=== PATIENT | male | born 1995 | race Caucasian/White ===

== ENCOUNTER 2016-07-27 17:15 | Emergency (ER) | payer OTHER ==
--- NOTE | 2016-07-27 18:54 | EDPHY ---
H & P Time Seen by Provider: 07/27/16 18:40 HPI/ROS: CHIEF COMPLAINT: Cough, chest congestion. HISTORY OF PRESENT ILLNESS: The patient is a 21-year-old otherwise healthy male who presents with productive cough and chest congestion for 4 days. The symptoms began with 1 or 2 days of sore throat that went away. He has had bronchitis twice in the past year and believes this feels the same. The cough is keeping him awake at night. He denies fever, vomiting, or other complaints. He has been treating his symptoms with Robitussin. REVIEW OF SYSTEMS: A complete 10-point review of systems was performed and is negative except for those items mentioned in the HPI. Past Medical/Surgical History: Denies. Social History: Nonsmoker, student. Smoking Status: Never smoked Physical Exam: General Appearance: Alert, no distress Eyes: Pupils equal and round, no conjunctival pallor or injection ENT, Mouth: Mild pharyngeal erythema. Mucous membranes moist Neck: Normal inspection Respiratory: Lungs are clear to auscultation Cardiovascular: Regular rate and rhythm Gastrointestinal: Abdomen is soft and non- tender Neurological: A&O, nonfocal, normal gait Skin: Warm and dry, no rash Extremities: Nontender, no pedal edema Psychiatric: Mood and affect normal Constitutional: Initial Vital Signs Temperature (C) 36.8 C 07/27/16 17:19 Heart Rate 98 07/27/16 17:19 Respiratory Rate 17 07/27/16 17:19 Blood Pressure 130/66 H 07/27/16 17:19 O2 Sat (%) 97 07/27/16 17:19 O2 Delivery Mode Room Air Allergies/Adverse Reactions: No Known Allergies Allergy (Verified 07/27/16 17:18) Home Medications: Medication Instructions Recorded Codeine/Promethazine [Phenergan W/ 5 ml PO HS PRN #60 ml 07/27/16 Codeine Syrup] Medical Decision Making - Diagnostics Imaging: Chest x-ray reviewed by me reveals no acute process. Departure - Departure Disposition: Home, Routine, Self-Care Clinical Impression: Upper respiratory infection Qualifiers: URI type: unspecified URI Qualifier Code: (J06.9) Acute upper respiratory infection, unspecified Condition: Good Instructions: Upper Respiratory Infection (ED) Additional Instructions: Try [id number] Delsym during the day for your cough. Use the Phenergan/Codeine cough syrup as prescribed before bed. Drink plenty of fluids and be sure to get rest. Follow up with [facility] in the next 3-4 days if symptoms are not improving. Return to the emergency department for fever, vomiting, shortness of breath, or other serious worsening of condition. Referrals: [facility] [Outside] - As per Instructions Prescriptions: Codeine/Promethazine [Phenergan W/ Codeine Syrup] 5 ml PO HS PRN #60 ml PRN Reason: cough Report Scribed for: Gail Recinos Report Scribed by: Alfred Palomares Date of Report: 07/27/16 Time of Report: 19:02 Physician Review and Approval Statement: 07/27/16 19:02 Portions of this note were transcribed by a spanish medical interpreter. I personally performed a history, physical exam, medical decision making, and confirmed accuracy of information the transcribed note.
--- NOTE | 2016-07-27 19:04 | DX ---
PA and lateral chest History: Central chest pain for 3 days. Comparison: PA and lateral chest February 24, 2016. Findings: The lungs are clear. There is no pneumothorax or pleural effusion. The heart and pulmonar y vasculature are normal. The bones are stable. Impression: No acute findings in the chest.
[2016-07-27 19:29] VITALS: BP 121/65; PULSE 73; RESP 16; TEMP 97.9; O2SAT 98
== END 2016-07-27 19:29 | disposition home or self-care (01) ==
DX: J06.9 Acute upper respiratory infection, unspecified (principal)

== ENCOUNTER 2018-10-24 12:07 | Emergency (ER) | payer OTHER ==
--- NOTE | 2018-10-24 12:49 | EDPHY ---
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 Patient had a brief complaint of blurred vision after the event, visual acuity was 20/25 independently and 20/20 overall. Funduscopic exam and slit-lamp or grossly unremarkable. He did not have a foreign body exposure, I did not perform a fluorescein exam and do not suspect foreign body. There were no clinical findings to suggest iritis, acute angle-closure glaucoma, severe uveitis, acute loss of vision (from CRAO, temporal arteritis, retinal detachment or optic neuritis), significant corneal ulceration or other ophthalmologic emergency. The patient was given him Ophthalmology referral, he will call to schedule appointment. Return precautions discussed. ED COURSE: 1315: Case discussed with Dr. Barr CHIEF COMPLAINT: Uvula exposure from welding HPI: Patient is a 23-year-old male with no significant medical history who presents to the emergency department after he was in welding class, forgot to turn on his auto darkened mode and was exposed to UV light. He felt as if he looked directly at the sun, experience some blurred vision briefly which has resolved. He denies any eye pain, sensation of foreign body, headache or dizziness. He states he was just concerned and wanted to be checked. He denies any other injury or complaint. ROS: Otherwise negative, please see HPI. PHYSICAL EXAM: General Appearance: Well-developed, well-appearing and in no acute distress. Visual bernal = WNL. EOMI. PERRLA. Slit lamp no eyelid edema, blepharitis, or cellulitis. No conjunctival hemorrhages, hyphema, or hypopyon. Negative Maggi test. No cell and flare. Funduscopic no papilledema, retinal hemorrhages or cotton wool spots observed (w/out eye dilated). Respiratory: There are no retractions, lungs are clear to auscultation. Cardiac: Regular rate and rhythm, no murmurs or gallops. Gastrointestinal: Abdomen is soft, nontender, bowel sounds normal, no masses/ hernia, no rigidity, guarding or focal peritoneal findings. Skin: Warm, dry, no rashes. Neuro: Alert and oriented x3, Cranial nerves 2-12 grossly intact. No focal deficit. Psych: Normal mood, normal affect. No agitation. MEDICAL DECISION MAKING: Patient was seen independently. Secondary supervising physician at time of evaluation was Dr. Barr, he did not evaluate this patient. Diagnosis: UV light exposure. Summary: See Assessment and Plan for summary of ED visit Clinical lab tests: Not applicable. Independent visualization of images, tracing, or specimens: Not applicable. Decision to obtain medical records or history from someone other than the patient: No Review / Summarize previous medical records: No Discussed patient with another provider: Yes, Dr. Barr Patient Progress: Stable, discharge. - History Smoking Status: Never smoked - Objective Vital Signs: Initial Vital Signs Temperature (C) 36.3 C 10/24/18 12:12 Heart Rate 89 10/24/18 12:12 Respiratory Rate 18 10/24/18 12:12 Blood Pressure 140/87 H 10/24/18 12:12 O2 Sat (%) 99 10/24/18 12:12 O2 Delivery Mode Room Air Allergies/Adverse Reactions: No Known Allergies Allergy (Verified 10/24/18 12:10) Home Medications: Medication Instructions Recorded NK [No Known Home Meds] 10/24/18 Departure - Departure Disposition: Home, Routine, Self-Care Clinical Impression: Blurred vision, bilateral Condition: Good Instructions: Blurred Vision (ED) Additional Instructions: DISCHARGE INSTRUCTIONS FROM YOUR PROVIDER Thank you for visiting our emergency department today. Please keep in mind that discharge from the emergency department does not mean that there is nothing wrong - it simply means that we have not identified an emergency condition that requires further evaluation or treatment in the hospital. You should always plan to follow up with primary care for re-evaluation of your condition in the next 2-3 days. You have been provided a referral both to [facility] and Ophthalmology. Please call to schedule follow-up appointment with both. People present with illnesses and injuries in different ways, and it is always possible that we have missed something. Again, thank you for choosing our emergency department. We hope that you feel better. Referrals: [facility] [Clinic] - As per Instructions Derrick Lyon MD [Medical Doctor] - 2-3 days, call for appt.
[2018-10-24 13:52] VITALS: BP 126/72
== END 2018-10-24 13:52 | disposition home or self-care (01) ==
DX: H53.8 Other visual disturbances (principal)